=== PATIENT | female | born 1965 | race African-American/Black ===

== ENCOUNTER 2018-04-16 12:41 | Inpatient (IN) | payer OTHER ==
[~2018-04-16] VITALS: Ht 157.5 cm; Wt 44.0 kg
--- NOTE | 2018-04-16 12:54 | NUR ---
MISTY FROM [facility] DT LOW BLOOD PRESSURE. RECEIVED PATIENT AWAKE AND ALERT. NOT IN DISTRESS. SKIN IS WARM TO TOUCH AND NON DIAPHORETIC, PATIENT IS AFEBRILE. BP-- 85/47. PENDING MD ALBERT
--- NOTE | 2018-04-16 13:12 | NUR ---
[facility]. [facility] [id number] [facility]
[2018-04-16 13:31] LABS: HEMOGLOBIN 9.1 g/dL (11.5-14.8)
[2018-04-16 13:34] LABS: HEMATOCRIT 26 % (33-45); MEAN CORPUSCULAR HEMOGLOBIN 28 PG (26.0-33.0); MEAN CORPUSCULAR HGB CONC 34 g/dl (31.0-36.0); MEAN CORPUSCULAR VOLUME 82 fL (82-100); PLATELET COUNT (AUTO) 323 /CMM (150-450); RDW COEFFICIENT OF VARIATION 19.8 (11.5-15.0); RED BLOOD CELL COUNT(AUTO) 3.21 MIL/uL (4.0-5.2)
[2018-04-16 13:38] LABS: CALCIUM, SERUM 10.3 mg/dL (8.5-10.1); CARBON DIOXIDE 19 mmol/L (21-32); CHLORIDE 103 mmol/L (98-107); GLUCOSE 90 mg/dL (74-106); POTASSIUM 4.2 mmol/L (3.5-5.1); SODIUM SERUM 132 mmol/L (136-145); UREA NITROGEN, BLOOD 61 mg/dL (7-18)
[2018-04-16 13:40] LABS: WHITE BLOOD COUNT (AUTO) 32.3 K/uL (4.3-11.0)
[2018-04-16] MEDS ORDERED: VANCOMYCIN 1 GM in IV NS 0.9% 250 ML IV STA (13:40)
[2018-04-16] MEDS ORDERED: CEFEPIME 1 GM in IV D5W 50 ML IV STA (13:40)
--- NOTE | 2018-04-16 13:45 | NUR ---
CALLED Place[employer] FITNESS CONSULTANT WAS PAGED.
[2018-04-16 13:51] LABS: ALANINE AMINOTRANSFERASE 12 U/L (12-78); ALKALINE PHOSPHATASE 190 U/L (46-116); ASPARTATE AMINOTRANSFERASE 20 U/L (15-37); B-TYPE NATRIURETIC PEPTIDE 850 PG/ML (0-125); BILIRUBIN,DIRECT 0.2 mg/dL (0.0-0.2); BILIRUBIN,TOTAL 0.9 mg/dL (0.2-1.0); TOTAL PROTEIN, SERUM 7.2 g/dL (6.4-8.2)
[2018-04-16 13:52] LABS: ALBUMIN 1.2 g/dL (3.4-5.0)
[2018-04-16 14:21] LABS: APPEARANCE,URINE CLOUDY (CLEAR)
[2018-04-16 14:22] LABS: COLOR,URINE DARK YELLOW (YELLOW)
[2018-04-16 14:23] LABS: BLOOD, URINE 3+ Ery/uL (NEGATIVE); PROTEIN,URINE 4+ mg/dl (NEGATIVE); UGLUCOSE NEGATIVE (NEGATIVE)
[2018-04-16 14:24] LABS: BILIRUBIN,URINE SMALL (NEGATIVE); KETONES,URINE NEGATIVE (NEGATIVE); LEUKOCYTE ESTERASE ,URINE 3+ (NEGATIVE); NITRITE, URINE NEGATIVE (NEGATIVE); UROBILINOGEN,URINE 0.2 EU/dL (0.2)
[2018-04-16 14:28] LABS: INR 1.23 (0.85-1.15)
[2018-04-16 14:29] LABS: BACTERIA,URINE Many /HPF (None Seen); SQUAMOUS EPITHELIAL CELL,UR Few /HPF (None Seen); WBC,URINE 80-100 /HPF (0-3)
[2018-04-16 14:30] LABS: RBC,URINE 15-30 /HPF (0-2)
[2018-04-16] MEDS ORDERED: IV NS 0.9% 1,000 ML BAG IV ONE (14:30)
[2018-04-16] MEDS ORDERED: FAMO20TA8 PO (14:44)
[2018-04-16] MEDS ORDERED: ESCI5TAB PO (14:44)
[2018-04-16] MEDS ORDERED: FERR325T24 PO (14:44)
[2018-04-16] MEDS ORDERED: FLUD0.1T PO (14:44)
[2018-04-16] MEDS ORDERED: ENOX40DI SQ (14:44)
[2018-04-16] MEDS ORDERED: ZINC220T PO (14:44)
--- NOTE | 2018-04-16 14:48 | NUR ---
Patient is resting comfortably in bed with eyes closed. Easily aroused. VSS
--- NOTE | 2018-04-16 14:50 | NUR ---
PATIENT'S IV NS STILL INFUSING, WILL ENDORS SEPSIS REASSESSMENT AFTER FLUID. PATIENT STABEL FOR TRANSFER
[2018-04-16 14:52] LABS: BAND % (MANUAL) 6 % (0.0-5.0); LYMPHOCYTES % (MANUAL) 22 % (16-48); NEUTROPHILS % (MANUAL) 72 (42-76)
[2018-04-16 14:55] LABS: TROPONIN I < 0.017 ng/mL (0.00-0.056)
--- NOTE | 2018-04-16 14:59 | NUR ---
REPORT GIVEN TO ABBEY ABERNATHY.
--- NOTE | 2018-04-16 15:30 | NUR ---
COSMETOLOGY INSTRUCTOR INITIAL NOTES: RECEIVED PT FROM ER VIA GURNEY, SAFELY TRANSFERRED TO BED 109. PT CLEANED AND NEW GOWN PLACED. SKIN ASSESSMENT DONE. NOTED WITH MULTIPLE WOUNDS FROM BILAT FEET UP TO THE BACK. PICTURES TAKEN AND PLACED IN CHART. WOUND CARE DONE. WOUND CARE CONSULT REQUESTED WELL. PT ON TELE MONITOR, ST WITH PVC'S HR 112. PT DENIES ANY PAIN OR DISCOMFORT AT THIS TIME. A&O X2-3. COOPERATIVE BUT SEEMS WITHDRAWN. COLOSTOMY BAG IN PLACE, SOLOMON IN PLACE DRAINING DAREN URINE. IV TO L WRIST IN PLACE, #22 GAUGE. CONNECTED TO IV FLUIDS ORDERED. DR PIA CM AWARE OF PT'S TRANSFER, ORDERS RECEIVED IN THE COMPUTER. CARRIED OUT. PT'S FAMILY AT BEDSIDE AND ABLE TO GIVE SOME PRIOR MEDICAL HISTORY FOR PATIENT. STATES SHE HAS NOT BEEN EATING OR DRINKING WELL, HAS A HISTORY OF DEHYDRATION AND LOW BLOOD PRESSURE WELL. BED IN LOW LOCKED POSITION, CALL LIGHT WITHIN REACH. BED ALARM ON FOR SAFETY. PLAN OF CARE DISCUSSED WITH PT. WILL CONTINUE TO MONITOR.
[2018-04-16 16:00] VITALS: BP 77/47
[2018-04-16] MEDS ORDERED: IV NS 0.9% 1,000 ML IV PRN (16:17)
[2018-04-16] MEDS ORDERED: ONDANSETRON HCL/PF 4 MG/2 ML VIAL IVP PRN (16:30)
[2018-04-16] MEDS ORDERED: Z GUARD REMEDY 2 OZ OINT TP PRN (16:30)
[2018-04-16] MEDS ORDERED: ACETAMINOPHEN 325 MG TABLET PO PRN (16:30)
[2018-04-16] MEDS ORDERED: FEE PK DOSING 1 MIN EA MC ONE (16:31)
[2018-04-16] MEDS: FERROUS SULFATE (325 MG) 325 MG/TAB TABLET PO SCH (17:07)
[2018-04-16] MEDS: ENOXAPARIN SODIUM 30 MG/0.3 ML DISP.SYRIN SQ SCH (18:33)
[2018-04-16] MEDS: MEROPENEM 500 MG in IV NS 0.9% 50 ML IV SCH (18:37)
--- NOTE | 2018-04-16 19:00 | NUR ---
TALENT DEVELOPMENT DIRECTOR END NOTES: PT REMAINS RESTING COMFORTABLY IN BED AT THIS TIME. STILL NOTED WITH LOW BLOOD PRESSURE. FLUIDS CONTINUE TO RUN ORDERED. PT DENIES ANY PAIN OR DISCOMFORT AT THIS TIME. WILL ENDORSE TO PM SHIFT FOR CONTINUITY OF CARE.
--- NOTE | 2018-04-16 19:40 | NUR ---
TEACHER OF THE DEAF/HARD OF HEARING END NOTES, PATIENT IN BED, ALERT AND ORIENTED, BREATHING EVEN AND UNLABORED, NO S/S OR ACUTE DISTRESS NOTED AT THIS TIME, PATIENT NEWLY ADMITTED WITH MULTIPLE WOUNDS, WILL F/U WITH WOUND CONSULT TOMORROW, IVF 0.9% NS INFUSING @75ML/HR, NO S/S OF INFILTRATION NOTED, ALL NEEDS PROVIDED, DRY AND CLEAN AND WELL REPOSITIONED, BED LOCKED AND IN LOW POSITION, CALL LIGHT W/I REACH, WILL CONTINUE TO MONITOR CLOSELY. Addendum: 04/16/18 at 2353 by ABRAHAM BRUNO RN PATIENT INITIAL NOTES BEGINNING OF SHIFT
[2018-04-16 20:00] VITALS: BP 85/53
--- NOTE | 2018-04-16 20:18 | NUR ---
BURRER OPERATOR NOTES, NOTED PATIENT WITH FOLLOWING VS BP 85/53, HR 126 CLOSE TO 130S ON TELE MONITOR, PATIENT DENIES PAIN AT THIS TIME, PAGED MD POSTAL WORKER KELLI, AND AWAITING FOR CALL BACK.
--- NOTE | 2018-04-16 20:28 | NUR ---
SOLDERING INSPECTOR NOTES, KELLI CHECK WRITER ON THE FLOOR AT THIS TIME, AND GIVE NEW ORDER TO GIVE 500ML BOLUS ONCE AT THIS TIME TO INCREASE BP, ORDER NOTED AND CARRIED OUT, WILL CONTINUE TO MONITOR CLOSELY.
[2018-04-16] MEDS ORDERED: IV NS 0.9% 500 ML IV ONE (20:30)
[2018-04-16] MEDS ORDERED: MEROPENEM 1 G in IV NS 0.9% 100 ML IV SCH (21:00)
--- NOTE | 2018-04-16 23:10 | NUR ---
FINANCIAL PLANNING ANALYST NOTES, NOTED PATIENT STILL WITH LOW BP 73/43, CALL MD PEREIRA DOUBLE HEAD MACHINE OPERATOR AND INFORMED ABOUT PATIENT'S LOW BP, AND REPLIED WITH ORDER TO CONTINUE TO MONITOR AND CHECK BP IN 2HRS, INFORM MD THAT PATIENT IS ASYMPTOMATIC AND STATES FEELING OK, PATIENT ALERT AND ORIENTED, NO CHANGES IN LOC, DENIES ANY DISCOMFORT OR DIZZINESS AT THIS TIME, ABLE TO COMMUNICATE NEEDS AND CONCERNS, KELLI SUDDENLY ON THE FLOOR AND ASSESSED PATIENT,AND STATES THAT LONG SBP IS IN 70S IS OK, THAT PATIENT HAS A H/O HYPOTENSION, WILL CONTINUE TO MONITOR CLOSELY. Addendum: 04/17/18 at 0324 by ABRAHAM BRUNO RN KELLI DOUBLE HEAD MACHINE OPERATOR STATED THAT LONG THE MAP FOR PATIENT IS >50 IS OK
[2018-04-17] VITALS (10 sets, daily range): BP systolic 66–91; BP diastolic 39–52
--- NOTE | 2018-04-17 02:30 | NUR ---
HEAD SCHOOL CUSTODIAN NOTES, RECHECK BP AT THIS TIME AND BP 75/46 WITH MAP OF 55 AT THIS TIME , PER KELLI LONG THE MAP IS >50 IS OK. WILL CONTINUE TO MONITOR PATIENT CLOSELY.
[2018-04-17] MEDS: MEROPENEM 500 MG in IV NS 0.9% 50 ML IV SCH ×2 (04:40→17:26)
--- NOTE | 2018-04-17 06:29 | NUR ---
RESOURCE ECONOMIST ENDING NOTES, PATIENT IN BED, SLEEPING BUT EASILY AROUSABLE TO VERBAL STIMULI, BREATHING EVEN AND UNLABORED, NO S/S OR ACUTE DISTRESS NOTED AT THIS TIME, PATIENT WITH EPISODES OF HYPOTENSION THROUGHOUT THE SHIFT, REPORTED TO KELLI CONTACT FINGER ASSEMBLER AND INITIALLY GAVE AN ORDER FOR NS 0.9% 500ML BOLUS X1, AFTER THAT PATIENT CONTINUE WITH SBP IN THE 70S, PER EKLLI OK LONG MAP IF >50 SINCE PATIENT HAS A H/O LOW BLOOD PRESSURE, IVF 0.9% NS INFUSING @75ML/HR, NO S/S OF INFILTRATION NOTED, ALL NEEDS PROVIDED, DRY AND CLEAN AND WELL REPOSITIONED, BED LOCKED AND IN LOW POSITION, CALL LIGHT W/I REACH, WILL ENDORSE TO ONCOMING NURSE FOR CONTINUATION OF CARE.
[2018-04-17 06:48] LABS: CHOLESTEROL 114 mg/dL (<200); LDL 42 mg/dL (0-99); THYROID STIMULATING HORMONE 2.722 uIU/mL (0.358-3.74); TRIGLYCERIDES 315 mg/dL (30-150)
[2018-04-17 06:50] LABS: ALANINE AMINOTRANSFERASE 10 U/L (12-78); ALKALINE PHOSPHATASE 148 U/L (46-116); ASPARTATE AMINOTRANSFERASE 21 U/L (15-37); BILIRUBIN,TOTAL 0.6 mg/dL (0.2-1.0); CALCIUM, SERUM 8.7 mg/dL (8.5-10.1); CARBON DIOXIDE 17 mmol/L (21-32); CHLORIDE 107 mmol/L (98-107); CREATININE 1.6 mg/dL (0.6-1.3); GLUCOSE 95 mg/dL (74-106); MAGNESIUM 1.8 mg/dL (1.8-2.4); PHOSPHORUS 2.4 mg/dL (2.5-4.9); POTASSIUM 3.6 mmol/L (3.5-5.1); SODIUM SERUM 136 mmol/L (136-145); TOTAL PROTEIN, SERUM 5.6 g/dL (6.4-8.2); UREA NITROGEN, BLOOD 45 mg/dL (7-18)
[2018-04-17 06:51] LABS: ALBUMIN 0.9 g/dL (3.4-5.0)
[2018-04-17 07:00] LABS: BASOPHILS % (AUTO) 0.1 % (0.0-2.0); EOSINOPHILS % (AUTO) 0.2 % (0.0-6.0); HEMATOCRIT 21 % (33-45); LYMPHOCYTES # (AUTO) 1.9 /CMM (0.8-4.8); LYMPHOCYTES % (AUTO) 7.7 % (20.0-44.0); MEAN CORPUSCULAR HEMOGLOBIN 26 PG (26.0-33.0); MEAN CORPUSCULAR HGB CONC 31 g/dl (31.0-36.0); MEAN CORPUSCULAR VOLUME 85 fL (82-100); MONOCYTES # (AUTO) 0.9 /CMM (0.1-1.30); MONOCYTES % (AUTO) 3.7 % (2.0-12.0); NEUTROPHILS # (AUTO) 21.6 /CMM (1.8-8.9); NEUTROPHILS % (AUTO) 88.3 % (43.0-81.0); PLATELET COUNT (AUTO) 391 /CMM (150-450); RDW COEFFICIENT OF VARIATION 20.4 (11.5-15.0); WHITE BLOOD COUNT (AUTO) 24.5 K/uL (4.3-11.0)
[2018-04-17 07:03] LABS: HDL CHOLESTEROL < 10 mg/dL (40-60)
--- NOTE | 2018-04-17 07:10 | NUR ---
COMMUNITY HEALTH EDUCATION COORDINATOR NOTES, RECEIVED A CALL FROM LAB TO REPORT CRITICAL VALUES FOR H&H of 6.5/21.0 ENDORSED TO BIRDIE TORRE RN.
[2018-04-17 07:14] LABS: HEMOGLOBIN 6.5 g/dL (11.5-14.8)
[2018-04-17] MEDS: VANCOMYCIN 500 MG in IV D5W 100 ML IV SCH (08:28)
[2018-04-17] MEDS ORDERED: IV NS 0.9% 500 ML IV ONE (09:00)
[2018-04-17] MEDS ORDERED: FLUDROCORTISONE 0.1 MG TABLET PO SCH (09:00)
[2018-04-17] MEDS: ZINC SULFATE 220 MG CAPSULE PO SCH (09:32)
[2018-04-17] MEDS: FLUDROCORTISONE 0.1 MG TABLET PO SCH ×3 (09:32→17:26)
[2018-04-17] MEDS: HYDROCORTISONE SOD SUCCINATE 100 MG/2 ML VIAL IV SCH ×3 (09:32→17:26)
[2018-04-17] MEDS: ESCITALOPRAM OXALATE (10 MG) 10 MG TABLET PO SCH (09:32)
[2018-04-17] MEDS: FERROUS SULFATE (325 MG) 325 MG/TAB TABLET PO SCH ×3 (09:32→17:26)
[2018-04-17] MEDS: FAMOTIDINE (20 MG) 20 MG TABLET PO SCH (09:32)
[2018-04-17] MEDS ORDERED: HYDROGEL DRESSING 90 GM TUBE TP PRN (10:00)
[2018-04-17 10:02] LABS: EOSINOPHILS % (MANUAL) 1 % (0-4); LYMPHOCYTES % (MANUAL) 11 % (16-48); MONOCYTES % (MANUAL) 3 % (0-11.0); NEUTROPHILS % (MANUAL) 85 (42-76)
--- NOTE | 2018-04-17 10:04 | NUR ---
WOUND CARE CONSULT: PT PRESENTS WITH MULTIPLE LARGE WOUNDS WITH FOUL ODOR, PRESENT ON ADMISSION. RECOMMENDATIONS MADE FOR WOUND CARE AND SKIN PROTECTION. DISCUSSED WITH NURSING STAFF. RECOMMEND SURGICAL CONSULT. FIRST STEP LOW AIRLOSS MATTRESS ORDERED. PT NOTED TO HAVE COLOSTOMY. CURRENT BAYLEE SCORE IS 12. PT IS VERY THIN AND BONY WITH CONTRACTED LOWER EXTREMITIES. WILL SEE PRN. FREEMAN IN AGREEMENT WITH PLAN OF CARE. Addendum: 04/17/18 at 1006 by GEE VALLES Amended: Links added. Addendum: 04/17/18 at 1010 by GEE VALLES DPM CONSULT RECOMMENDED.
[2018-04-17] MEDS: HYDROGEL DRESSING 90 GM TUBE TP SCH (10:46)
[2018-04-17] MEDS: DAKINS QUARTER STRENGTH (0.125%) 480 ML BOTTLE TOP SCH (10:46)
[2018-04-17] MEDS ORDERED: NEUTRA PHOS 1 POWD.PACKET PO ONE (11:30)
--- NOTE | 2018-04-17 12:10 | NUR ---
Pending transfusion after blood work complete. Sample (possibly too little) to lab. Wrist band applied.
--- NOTE | 2018-04-17 14:49 | NUR ---
Social service consult requested by JESSICA Delgadillo and wound ABBEY Davenport regarding multiple large wounds. Pt. is a 52 year old female who was admitted to [facility] for sepsis. Pt. currently resides at [facility]. [facility] contacted [facility] to inquire about pt's wounds. SW spoke to ABBEY Joiner who informed SW that pt. came to their facility on 03/26/18 with the wounds. Pt. was transferred to them from [facility] in . A. Rhys informed SW that pt. pt. had an appt. with a metrology specialist scheduled for tomorrow, however Pt. ended up being hospitalized at [facility]. [facility]CIUS also inquired with Rhys in regards to pt. being frail and weighing 99lbs. Per ABBEY Joiner, pt. is not thriving and does not eat. Pt. has to be repeatedly encouraged several times before she will eat. Per Rhys, pt's family states this has been an ongoing issue with the pt. Pt. suffers from Depression and is currently taking 500 mg per day of Lexapro for her depression. Pt. is verbal and able to make her needs known. Pt's primary/ emergency contact is her son Bandar Comer . ABBEY Joiner informed SW they will accept the pt. back to the facility once pt. is medically cleared. [facility] updated housing manager Yoana and wound ABBEY Davenport with the aforementioned information. No other social service needs are required at this time. SW is available, if needed.
[2018-04-17] MEDS: LACTOBACILLUS RHAMNOSUS GG 1 EACH CAP.SPRINK PO SCH (17:26)
--- NOTE | 2018-04-17 19:46 | NUR ---
Handoff to night nurse, GERARD Arizmendi. Brody Plaza RN
[2018-04-17] MEDS: ENOXAPARIN SODIUM 30 MG/0.3 ML DISP.SYRIN SQ SCH (21:00)
[2018-04-18 00:16] VITALS: BP 82/53
[2018-04-18] MEDS: VANCOMYCIN 500 MG in IV D5W 100 ML IV SCH (01:03)
[2018-04-18] MEDS: IV NS 0.9% 1,000 ML IV PRN (01:04)
[2018-04-18 04:00] VITALS: BP 99/64
[2018-04-18] MEDS: MEROPENEM 500 MG in IV NS 0.9% 50 ML IV SCH ×2 (04:02→16:29)
[2018-04-18 06:09] LABS: EOSINOPHILS % (AUTO) 0.5 % (0.0-6.0); HEMATOCRIT 28 % (33-45); LYMPHOCYTES # (AUTO) 1.9 /CMM (0.8-4.8); MEAN CORPUSCULAR HEMOGLOBIN 28 PG (26.0-33.0); MEAN CORPUSCULAR HGB CONC 33 g/dl (31.0-36.0); MEAN CORPUSCULAR VOLUME 85 fL (82-100); MONOCYTES # (AUTO) 0.8 /CMM (0.1-1.30); NEUTROPHILS # (AUTO) 16.4 /CMM (1.8-8.9); NEUTROPHILS % (AUTO) 85.5 % (43.0-81.0); PLATELET COUNT (AUTO) 283 /CMM (150-450); RDW COEFFICIENT OF VARIATION 18.8 (11.5-15.0); RED BLOOD CELL COUNT(AUTO) 3.24 MIL/uL (4.0-5.2); WHITE BLOOD COUNT (AUTO) 19.1 K/uL (4.3-11.0)
--- NOTE | 2018-04-18 06:20 | NUR ---
TELE-1/STOCKKEEPER AM CARE GIVEN. ALL WOUND DRESSINGS CHANGED. SOLOMON CATH MAYBE LEAKING. MINIMAL OUTPUT IN COLLECTION BAG BUT CHUCKS WERE SOILED. WILL ENDORSE TO AM SHIFT.
[2018-04-18 06:43] LABS: BILIRUBIN,TOTAL 0.6 mg/dL (0.2-1.0); CALCIUM, SERUM 8.6 mg/dL (8.5-10.1); CREATININE 1.2 mg/dL (0.6-1.3); MAGNESIUM 1.7 mg/dL (1.8-2.4); POTASSIUM 3.7 mmol/L (3.5-5.1)
[2018-04-18 06:44] LABS: ALBUMIN 0.9 g/dL (3.4-5.0)
--- NOTE | 2018-04-18 07:15 | NUR ---
RN NOTES PT IS SITTING UP IN BED, AWAKE AND RESTING COMFORTABLY. PT ON RA, RESPIRATIONS ARE EVEN AND UNLABORED. IV ON RIGHT LEG, INTACT AND RUNNING NS @ 125ML/HR. SOLOMON CATHETER IS IN PLACE AND DRAINING TO GRAVITY. NO SIGNS OF DISTRESS NOTED, SAFETY MEASURES ARE IN PLACE, CALL LIGHT IS IN REACH. WILL CONTINUE TO MONITOR.
[2018-04-18 08:00] VITALS: BP 106/74
[2018-04-18] MEDS: MIDODRINE HCL (5MG) 5 MG TABLET PO SCH ×3 (08:30→21:41)
[2018-04-18] MEDS: DAKINS QUARTER STRENGTH (0.125%) 480 ML BOTTLE TOP SCH ×2 (08:39)
[2018-04-18] MEDS: HYDROGEL DRESSING 90 GM TUBE TP SCH (08:39)
[2018-04-18] MEDS: ZINC SULFATE 220 MG CAPSULE PO SCH (08:41)
[2018-04-18] MEDS: FAMOTIDINE (20 MG) 20 MG TABLET PO SCH (08:41)
[2018-04-18] MEDS: ESCITALOPRAM OXALATE (10 MG) 10 MG TABLET PO SCH (08:41)
[2018-04-18] MEDS: FERROUS SULFATE (325 MG) 325 MG/TAB TABLET PO SCH ×3 (08:41→16:29)
[2018-04-18] MEDS: LACTOBACILLUS RHAMNOSUS GG 1 EACH CAP.SPRINK PO SCH ×2 (08:41→16:28)
[2018-04-18] MEDS: CADEXOMER IODINE 40 GM TUBE TP SCH (08:41)
[2018-04-18] MEDS: Magnesium 1GM/D5W 100ML PREMIX 100 ML IV SCH ×2 (11:41→13:10)
[2018-04-18 12:00] VITALS: BP_SYST 95; BP_DIAS 15; BP_DIAS 51
[2018-04-18] MEDS ORDERED: VANCOMYCIN 500 MG in IV D5W 100 ML IV SCH (15:00)
[2018-04-18 16:00] VITALS: BP_SYST 88; BP_SYST 95; BP_DIAS 51; BP_DIAS 57
--- NOTE | 2018-04-18 18:47 | NUR ---
RN NOTES PT IS SITTING UP IN SLEEP, RESTING COMFORTABLY. PT ON RA, RESPIRATIONS ARE EVEN AND UNLABORED. IV ON R LEG, INTACT AND RUNNING NS @ 125ML/HR. SOLOMON CATHETER IS IN PLACE AND DRAINING TO GRAVITY. COLOSTOMY BAG IS IN PLACE, CHANGED NEEDED. WOUND CARE PROVIDED ORDERED. ALL PT NEEDS MET. NO SIGNS OF DISTRESS NOTED. SAFETY MEASURES ARE IN PLACE, CALL LIGHT IS IN REACH. WILL ENDORSE TO MARKETING AUTOMATION MANAGER RN FOR CONTINUITY OF CARE.
[2018-04-18 20:00] VITALS: BP 98/51
--- NOTE | 2018-04-18 20:15 | NUR ---
RN NOTES RECEIVED PATIENT AWAKE IN BED WITH NO DISTRESS NOTED. NO COMPLAINT OF PAIN OR DISCOMFORT. ALERT AND RESPONSIVE WITH CONFUSION. ABLE TO VERBALIZE NEEDS. KEPT CLEAN AND DRY. WILL CONTINUE TO MONITOR.
[2018-04-18] MEDS: ENOXAPARIN SODIUM 30 MG/0.3 ML DISP.SYRIN SQ SCH (21:42)
[2018-04-19] VITALS: BP 90/55
[2018-04-19] MEDS: IV NS 0.9% 1,000 ML IV PRN ×2 (03:46→13:14)
[2018-04-19] MEDS: MIDODRINE HCL (5MG) 5 MG TABLET PO SCH ×3 (03:49→14:24)
[2018-04-19 04:00] VITALS: BP 95/53
[2018-04-19] MEDS: MEROPENEM 500 MG in IV NS 0.9% 50 ML IV SCH (05:36)
[2018-04-19 06:06] VITALS: BP 90/55
--- NOTE | 2018-04-19 06:33 | NUR ---
RN CLOSING NOTES SLEEPING COMFORTABLY IN BED WITH NO DISTRESS NOTED. BREATHING EVEN AND UNLABORED. NO COMPLAINT OF PAIN OR DISCOMFORT. VITAL SIGNS WNL. NO SIGNIFICANT CHANGE OF CONDITION. KEPT CLEAN AND DRY. WILL ENDORSE TO AM SHIFT FOR CONTINUITY OF CARE
[2018-04-19 08:00] VITALS: BP_SYST 76; BP_DIAS 42; BP_DIAS 72
[2018-04-19] MEDS ORDERED: VANCOMYCIN 500 MG in IV NS 0.9% 100 ML IV SCH (08:00)
--- NOTE | 2018-04-19 08:31 | NUR ---
NOTIFIED DR SCHMIDT OF PT'S LOW BLOOD PRESSURE 70/42 AND THAT PT REFUSED BLOOD DRAW INCLUDING VANCO TROUGH DRAW AND STATED OKAY. WILL CONTINUE TO MONITOR.
[2018-04-19] MEDS: ZINC SULFATE 220 MG CAPSULE PO SCH (08:37)
[2018-04-19] MEDS: FERROUS SULFATE (325 MG) 325 MG/TAB TABLET PO SCH ×3 (08:38→17:00)
[2018-04-19] MEDS: LACTOBACILLUS RHAMNOSUS GG 1 EACH CAP.SPRINK PO SCH ×2 (08:38→17:00)
[2018-04-19] MEDS: FAMOTIDINE (20 MG) 20 MG TABLET PO SCH (08:38)
[2018-04-19] MEDS: ESCITALOPRAM OXALATE (10 MG) 10 MG TABLET PO SCH (08:38)
[2018-04-19] MEDS: DAKINS QUARTER STRENGTH (0.125%) 480 ML BOTTLE TOP SCH ×2 (09:00→10:15)
[2018-04-19] MEDS ORDERED: CEFTRIAXONE 1 G in IV NS 0.9% 50 ML IV SCH (10:00)
[2018-04-19] MEDS: HYDROGEL DRESSING 90 GM TUBE TP SCH (10:16)
[2018-04-19] MEDS: CADEXOMER IODINE 40 GM TUBE TP SCH (10:17)
[2018-04-19 10:27] LABS: *SPE A/G RATIO 0.4 (0.7-1.7); *SPE ALBUMIN 1.4 g/dL (2.9-4.4); *SPE ALPHA-1-GLOBULIN 0.4 g/dL (0.0-0.4); *SPE ALPHA-2-GLOBULIN 0.8 g/dL (0.4-1.0); *SPE GLOBULIN, TOTAL 3.8 g/dL (2.2-3.9); *SPE M-SPIKE Not Observed g/dL (Not Observed); *SPEGAMMA GLOBULIN 1.7 g/dL (0.4-1.8)
--- NOTE | 2018-04-19 11:49 | NUR ---
Notified Dr Gupta of pt's urine culture result and orders received. will cont to monitor.
[2018-04-19 12:00] VITALS: BP 84/50
[2018-04-19] MEDS ORDERED: MEROPENEM 1 G in IV NS 0.9% 100 ML IV SCH (14:00)
[2018-04-19 16:00] VITALS: BP 80/50
--- NOTE | 2018-04-19 19:36 | NUR ---
DISCHARGE INSTRUCTIONS GIVEN REGARDING MEDICATIONS, ACTIVITIES AND TO TRY TO INCREASE ORAL INTAKE. HL ON R FOOT REMOVED. DRESSING CHANGES DONE OVER ALL BODY. SOLOMON INTACT. MIDLINE GAUGE 18 INSERTED BY PICCLINE RN AT BEDSIDE. REPORT GIVEN TO RN AT [facility].
[2018-04-20] MEDS ORDERED: ESCITALOPRAM OXALATE (10 MG) 10 MG TABLET PO SCH (09:00)
== END 2018-04-19 19:45 | DRG 710 ==
LOC: ER 12:44 → TELE1 15:55
PROVIDERS: ADMIT Nurse Practitioner Acute Care; ATTEND Nurse Practitioner Acute Care
PROC: 0JBQ0ZZ Excision of Right Foot Subcutaneous Tissue and Fascia, Open Approach (ICD-10-PCS; principal; 2018-04-16)
PROC: 0QBQ0ZZ Excision of Right Toe Phalanx, Open Approach (ICD-10-PCS; principal; 2018-04-16)
PROC: 30233N1 Transfusion of Nonautologous Red Blood Cells into Peripheral Vein, Percutaneous Approach (ICD-10-PCS; 2018-04-17)
PROC: B547ZZA Ultrasonography of Left Subclavian Vein, Guidance (ICD-10-PCS; 2018-04-19)
PROC: 05H633Z Insertion of Infusion Device into Left Subclavian Vein, Percutaneous Approach (ICD-10-PCS; 2018-04-19)
DX: A41.9 Sepsis, unspecified organism (principal); N17.0 Acute kidney failure with tubular necrosis; R65.21 Severe sepsis with septic shock; G82.50 Quadriplegia, unspecified; G92 Toxic encephalopathy; E43 Unspecified severe protein-calorie malnutrition; E86.0 Dehydration; I95.89 Other hypotension; N39.0 Urinary tract infection, site not specified; Z79.899 Other long term (current) drug therapy; Z87.440 Personal history of urinary (tract) infections; Z68.1 Body mass index [BMI] 19.9 or less, adult; I69.365 Other paralytic syndrome following cerebral infarction, bilateral; L89.519 Pressure ulcer of right ankle, unspecified stage; L97.519 Non-pressure chronic ulcer of other part of right foot with unspecified severity; L97.529 Non-pressure chronic ulcer of other part of left foot with unspecified severity; M86.9 Osteomyelitis, unspecified; M20.42 Other hammer toe(s) (acquired), left foot; F33.2 Major depressive disorder, recurrent severe without psychotic features; D63.8 Anemia in other chronic diseases classified elsewhere; I10 Essential (primary) hypertension; B96.20 Unspecified Escherichia coli [E. coli] as the cause of diseases classified elsewhere
CPT/HCPCS: 36415; 71045-TC; 80048-TC; 80053-TC; 80061-TC; 80076-TC; 80202-TC; 81000-TC; 82533; 82550-TC; 83605-TC; 83735-TC; 83880; 84100-TC; 84155; 84165; 84443-TC; 84484-TC; 85025-TC; 85730-TC; 86850-TC; 86921-TC; 87040-TC; 87070-TC; 87081-TC; 87086-TC; 87186-TC; 93307-TC; A4216; A4606; A6248; A6253; A6402; A6403; J0692; J0696; J1650; J1720; J2185; J2405; J3370; J3475; J7030; J7040; J7050; J7060; P9016-BL; Z7610